=== PATIENT | male | born 1980 ===

== ENCOUNTER 2021-03-17 08:40 | Observation (INO) ==
[2021-03-17] MEDS ORDERED: Ondansetron 4 MG/2 ML VIAL IVP ONE (09:27)
[2021-03-17 10:24] LABS: Basophils % 0.1 %; Hematocrit 44.6 % (37.5-50.1); Hemoglobin 15.2 g/dL (12.9-16.9); Immature Granulocytes % 0.4 % (0-4); Lymphocytes # 0.9 K/mcL (0.6-4.6); Lymphocytes % 11.3 %; Mean Corpuscular HGB Conc 34.1 g/dL (31.6-35.5); Mean Platelet Volume 10.2 fL (9.4-12.4); Monocytes # 0.9 K/mcL (0.0-1.3); Monocytes % 11.9 %; Neutrophils # 5.8 K/mcL (1.6-8.9); Platelet Count 166 K/mcL (140-400); Red Cell Distribution Width 11.8 % (11.5-14.5); Segmented Neutrophils % 76.3 %; White Blood Count 7.6 K/mcL (4.3-11.1)
[2021-03-17] MEDS: 0.9 % Sodium Chloride 1,000 ML IVC SCH (10:36)
[2021-03-17 10:50] LABS: VBG HCO3 9 mEq/L (21-27); VBG PCO2 24 mmHg (41-51); VBG PO2 53 mmHg (25-50)
[2021-03-17 10:52] LABS: Alanine Aminotransferase 27 Units/L (7-52); Albumin 3.9 g/dL (3.5-5.7); Albumin/Globulin Ratio 1.3 (1.1-2.2); Alkaline Phosphatase 77 Units/L (34-104); Aspartate Amino Transferase 24 Units/L (13-39); BUN/Creatinine Ratio 11 (6-26); Bilirubin,Total 0.5 mg/dL (0.3-1.0); Blood Urea Nitrogen 9 mg/dL (6-20); Calcium 9.1 mg/dL (8.6-10.3); Carbon Dioxide 10 mEq/L (23-29); Chloride 96 mEq/L (98-107); Globulin 3.1 g/dL (2.4-3.5); Glucose 301 mg/dL (70-105); Magnesium 1.7 mg/dL (1.6-2.6); Osmolality,Calculated 280 (280-300); Phosphorous 2.9 mg/dL (2.7-4.5); Sodium 130 mEq/L (136-145); eGFR For African Americans > 60 (> 60); eGFR For Non-African Americans > 60 (> 60)
[2021-03-17] MEDS ORDERED: Azithromycin 250 MG TABLET PO ONE (10:58)
[2021-03-17] MEDS ORDERED: D5% in 0.45% NACL 1,000 ML IVC PRN (13:09)
[2021-03-17] MEDS: D5% in 0.45% NACL w KCl 20 MEQ/1,000 ML MLS IVC PRN ×2 (15:22→22:03)
[2021-03-17 16:40] LABS: BUN/Creatinine Ratio 12 (6-26); Blood Urea Nitrogen 8 mg/dL (6-20); Carbon Dioxide 13 mEq/L (23-29); Chloride 105 mEq/L (98-107); Glucose 146 mg/dL (70-105); Osmolality,Calculated 275 (280-300); Potassium 3.2 mEq/L (3.5-5.1); Sodium 132 mEq/L (136-145); eGFR For African Americans > 60 (> 60); eGFR For Non-African Americans > 60 (> 60)
[2021-03-17] MEDS ORDERED: cefTRIAXone 1,000 MG in Water for inj. (sterile) 10 ML IVP SCH (19:00)
[2021-03-17] MEDS: *HR* Dextrose 50 % in Water (Syg) 50 ML SYRINGE IVP PRN ×2 (20:19→22:04)
[2021-03-17 21:53] LABS: BUN/Creatinine Ratio 13 (6-26); Blood Urea Nitrogen 8 mg/dL (6-20); Calcium 8.3 mg/dL (8.6-10.3); Carbon Dioxide 19 mEq/L (23-29); Chloride 106 mEq/L (98-107); Glucose 83 mg/dL (70-105); Osmolality,Calculated 273 (280-300); Potassium 3.3 mEq/L (3.5-5.1); Sodium 133 mEq/L (136-145); eGFR For African Americans > 60 (> 60); eGFR For Non-African Americans > 60 (> 60)
[2021-03-17] MEDS ORDERED: D5% in Water 1,000 ML IVC PRN (22:07)
[2021-03-17] MEDS ORDERED: *HR* Dextrose 50 % in Water (Syg) 50 ML SYRINGE IVP PRN (22:07)
[2021-03-17] MEDS ORDERED: Dextrose Gel 15 GM/37.5 ML TUBE PO PRN ×2 (22:07)
[2021-03-17] MEDS ORDERED: Insulin DETEMIR 100 UNIT/ML X5UNITS SUBQ SCH (22:15)
[2021-03-17 23:42] LABS: BUN/Creatinine Ratio 11 (6-26); Blood Urea Nitrogen 7 mg/dL (6-20); Calcium 8.1 mg/dL (8.6-10.3); Carbon Dioxide 17 mEq/L (23-29); Chloride 104 mEq/L (98-107); Glucose 234 mg/dL (70-105); Osmolality,Calculated 278 (280-300); Potassium 3.6 mEq/L (3.5-5.1); Sodium 131 mEq/L (136-145); eGFR For African Americans > 60 (> 60); eGFR For Non-African Americans > 60 (> 60)
[2021-03-18] MEDS: 0.9 % Sodium Chloride 1,000 ML IVC SCH ×2 (00:41)
[2021-03-18] MEDS: 0.45 % Sodium Chloride w/KCl 20 MEQ/1,000 ML MLS IVC SCH (00:41)
[2021-03-18] MEDS ORDERED: Acetaminophen 325 MG TABLET PO PRN (01:22)
[2021-03-18 02:33] LABS: Basophils % 0.2 %; Hematocrit 38.6 % (37.5-50.1); Immature Granulocytes % 0.3 % (0-4); Lymphocytes # 1.1 K/mcL (0.6-4.6); Lymphocytes % 17.4 %; Mean Corpuscular HGB Conc 35.2 g/dL (31.6-35.5); Mean Corpuscular Hemoglobin 33.2 pg (28.0-33.3); Mean Corpuscular Volume 94.1 fL (83.0-100.0); Mean Platelet Volume 10.3 fL (9.4-12.4); Monocytes # 0.7 K/mcL (0.0-1.3); Monocytes % 11.4 %; Neutrophils # 4.5 K/mcL (1.6-8.9); Platelet Count 170 K/mcL (140-400); Red Cell Distribution Width 11.7 % (11.5-14.5); Segmented Neutrophils % 70.7 %; White Blood Count 6.3 K/mcL (4.3-11.1)
[2021-03-18 02:40] LABS: Hemoglobin 13.6 g/dL (12.9-16.9)
[2021-03-18 02:49] LABS: BUN/Creatinine Ratio 11 (6-26); Blood Urea Nitrogen 7 mg/dL (6-20); Calcium 8.5 mg/dL (8.6-10.3); Carbon Dioxide 16 mEq/L (23-29); Chloride 103 mEq/L (98-107); Glucose 221 mg/dL (70-105); Osmolality,Calculated 277 (280-300); Potassium 3.9 mEq/L (3.5-5.1); Sodium 131 mEq/L (136-145); eGFR For African Americans > 60 (> 60); eGFR For Non-African Americans > 60 (> 60)
[2021-03-18] MEDS ORDERED: 0.9 % Sodium Chloride 1,000 ML IVC SCH (07:30)
[2021-03-18] MEDS: Insulin LISPRO 300 UNITS/3 ML VIAL SUBQ SCH ×2 (08:01→12:57)
[2021-03-18] MEDS ORDERED: Azithromycin 250 MG TABLET PO SCH (09:00)
[2021-03-18 15:32] LABS: BUN/Creatinine Ratio 18 (6-26); Blood Urea Nitrogen 9 mg/dL (6-20); Calcium 8.2 mg/dL (8.6-10.3); Carbon Dioxide 20 mEq/L (23-29); Chloride 103 mEq/L (98-107); Glucose 262 mg/dL (70-105); Osmolality,Calculated 282 (280-300); Potassium 3.3 mEq/L (3.5-5.1); Sodium 132 mEq/L (136-145); eGFR For African Americans > 60 (> 60); eGFR For Non-African Americans > 60 (> 60)
[2021-03-18 16:11] LABS: Estimated Average Glucose 392 mg/dl; Hemoglobin A1C 15.3 %
[2021-03-18 16:25] VITALS: BP 99/69; PULSE 116; TEMP 97.9; O2SAT 95
[2021-03-18] MEDS ORDERED: Insulin LISPRO 300 UNITS/3 ML VIAL SUBQ SCH (21:00)
== END 2021-03-18 17:00 | disposition home or self-care (01) ==
LOC: 3NENU 08:40 → EMEROOARM 08:40 → 3NENU 13:30
PROVIDERS: ADMIT Student in an Organized Health Care Education/Training Program; ATTEND Student in an Organized Health Care Education/Training Program